=== PATIENT | male | born 1935 | race Caucasian/White ===

== ENCOUNTER 2018-12-07 16:01 | Outpatient (CLI) | payer OTHER ==
--- NOTE | 2018-12-07 16:55 | Diagnostic Imaging Report ---
Indication: Cough, pneumonia, bronchitis Technique: 2 views of the chest Comparison: None Findings: Heart size is normal. The aorta is tortuous and calcified. There are degenerative changes of the thoracic spine. Surgical clips are seen in the epigastric region Impression: No acute process. Incidental findings as noted
== END 2018-12-07 18:01 | disposition home or self-care (01) ==
LOC: RAD 16:01
DX: J18.9 Pneumonia, unspecified organism (principal); J40 Bronchitis, not specified as acute or chronic
CPT/HCPCS: 71046